=== PATIENT | female | born 1940 | race Caucasian/White ===

== ENCOUNTER 2016-07-18 16:50 | Emergency (ER) | payer OTHER ==
[~2016-07-18] VITALS: Ht 157.5 cm; Wt 78.5 kg
[~2016-07-18 16:50] MED LIST: CIPRO500 M1 PO; GEMFIBROZIL600 M1 PO; GLIPIZIDE ER5 M1 PO; LISINOPRIL20 M1 PO; METFORMIN HCL1000 M1 PO; PIOGLITAZONE HC45 M1 PO; PRAVASTATIN SOD40 M2 PO; PROAIR HFA8.5 GM INH; PYRIDIUM100 M1 PO
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
[2016-07-18 20:52] VITALS: BP 145/66
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
== END 2016-07-18 21:30 ==
LOC: ERH 16:50
DX: S16.1XXA Strain of muscle, fascia and tendon at neck level, initial encounter (principal); V89.2XXA Person injured in unspecified motor-vehicle accident, traffic, initial encounter; Y93.9 Activity, unspecified; Y92.9 Unspecified place or not applicable
CPT/HCPCS: 72050; 73030-RT

== ENCOUNTER 2017-06-30 00:02 | Emergency (ER) | payer OTHER ==
[~2017-06-30] VITALS: Ht 152.4 cm; Wt 73.9 kg
[2017-06-30 00:24] VITALS: BP 159/84
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
[2017-06-30] MEDS ORDERED: TRAMADOL HCL50 M1 PO (00:48)
[2017-06-30] MEDS ORDERED: CYCLOBENZAPRINE5 M2 PO (00:48)
== END 2017-06-30 00:49 ==
LOC: ERH 00:02
DX: S39.012A Strain of muscle, fascia and tendon of lower back, initial encounter (principal)